=== PATIENT | female | born 1950 | race Two or more races ===

== ENCOUNTER 2019-12-16 09:11 | Outpatient (CLI) | payer MEDICARE, MEDICAID ==
[~2019-12-16] VITALS: Ht 144.8 cm; Wt 49.0 kg
--- NOTE | 2019-12-16 11:15 | Consultation ---
DATE OF CONSULTATION: 12/16/2019 CONSULTING PHYSICIAN: Torsten Shannon MD. CHIEF COMPLAINT: Abdominal pain, chronic GERD. PAST MEDICAL HISTORY: 1. Hypercholesterolemia. 2. Kidney stone. PAST SURGICAL HISTORY: Laser kidney surgery for stone. MEDICATIONS: Include hypercholesterolemia medication. FAMILY HISTORY: No family history of GI malignancy. SOCIAL HISTORY: The patient denies any tobacco, alcohol, or drug abuse. ALLERGIES: No known drug allergies. REVIEW OF SYSTEMS: Positive for abdominal pain, constipation and bloating. PHYSICAL EXAMINATION: VITAL SIGNS: Temperature 98.6, blood pressure 147/75, pulse , respirations 20. HEENT: Normocephalic, atraumatic. Sclerae anicteric. NECK: Supple. No evidence of obvious lymphadenopathy. CARDIOVASCULAR: Regular rate and rhythm. Plus S1 and S2. LUNGS: Clear to auscultation bilaterally. ABDOMEN: Positive bowel sounds. Soft and nontender. No rebound. No guarding. No peritoneal sign. EXTREMITIES: No cyanosis, no clubbing, no edema. ASSESSMENT/PLAN: This is a 69-year-old female with need for screening colonoscopy, also complained of chronic GERD, needs endoscopy. Plan to do an endoscopy and colonoscopy. The patient also was given one tablet p.o. daily for her symptoms of bloating. Consider adding Xifaxan if no improvement. I want to thank Dr. Renae for this kind referral. Torsten Shannon M.D. DR: LAURY JOB#: [id number] CC: Tortsen Renae MD.; Fax#: [phone]
[2019-12-16 14:09] VITALS: BP 147/75
[2019-12-16] MEDS ORDERED: CHOLESTEROL MED (14:09)
== END 2019-12-16 11:11 | disposition home or self-care (01) ==
LOC: PAN 09:11
DX: R10.9 Unspecified abdominal pain (principal); K21.9 Gastro-esophageal reflux disease without esophagitis; E78.00 Pure hypercholesterolemia, unspecified; Z87.442 Personal history of urinary calculi; Z79.899 Other long term (current) drug therapy; K59.00 Constipation, unspecified; R14.0 Abdominal distension (gaseous)

== ENCOUNTER 2019-12-31 09:13 | Day surgery (SDC) | payer MEDICARE, MEDICAID ==
[~2019-12-31] VITALS: Ht 152.4 cm; Wt 45.4 kg
[2019-12-31] VITALS (8 sets, daily range): BP systolic 129–163; BP diastolic 74–87
[~2019-12-31 09:13] MED LIST: CHOLESTEROL MED
--- NOTE | 2019-12-31 10:20 | Pre-Procedure Note/Attestation ---
Pre-Procedure Note/Attestation Complete Prior to Procedure Planned Procedure: not applicable Procedure Narrative: EGD AND COLONOSCOPY Indications for Procedure Pre-Operative Diagnosis: GERD, SCREENING Attestation I attest that I discussed the nature of the procedure; its benefits; risks and complications; and alternatives (and the risks and benefits of such alternatives ), prior to the procedure, with the patient (or the patient's legal players club representative). I attest that, if there was a reasonable possibility of needing a blood transfusion, the patient (or the patient's legal players club representative) was given the [facility] standardized written summary, pursuant to the [place] Blood Safety Act ([place] Health and Safety Code # 1645, as amended). I attest that I re-evaluated the patient just prior to the surgery and that there has been no change in the patient's H&P, except as documented below: Torsten Shannon MD Dec 31, 2019 10:20
--- NOTE | 2019-12-31 10:21 | Short Stay Surgery H&P ---
History of Present Illness History of Present Illness Chief Complaint SEE RECENT OFFICE NOTE HPI Levy Macias is a 69 year old female who was admitted on for Gerd, Colon Screening Patient History Allergies: Coded Allergies: No Known Allergies (Unverified , 01/08/12) Medication History Miscellaneous Medications [Cholesterol Med ], (Reported) Physical Exam Vital Signs Last Vital Signs Date Time Temp Pulse Resp B/P (MAP) Pulse Ox O2 Delivery O2 Flow Rate FiO2 12/31/19 09:54 Room Air 12/31/19 09:46 98.2 82 18 163/80 100 Plan Attestation Are the patient's medical conditions optimized for surgery? Torsten Shannon MD Dec 31, 2019 10:21
--- NOTE | 2019-12-31 10:39 | Endoscopy Procedure Note ---
Endoscopy Procedure Note General Indication for Procedure: screening colon, GERD Procedures Performed: EGD, colonoscopy Operative Findings/Diagnosis: gastritis, hemorrhoids Specimen: yes Pt Tolerated Procedure Well: Yes Estimated Blood Loss: none Anesthesia Anesthesiologist: dwayne Anesthesia: MAC Inserted Devices Implant(s) used?: No Quality Quality of Bowel Preparation: Good Did scope reach the cecum?: Yes Was there any complications?: No GI Core Measures 50 yrs or older w/o bx or poly: No 10yrs. F/U recommended: Yes If not recommended, why?: Above average risk 18 years or older w/prev. colo: No Torsten Shannon MD Dec 31, 2019 10:39
--- NOTE | 2019-12-31 11:11 | Immediate Post-Op Evaluation ---
Immediate Post-Op Evalulation Immediate Post-Op Evalulation Procedure: egd/colonoscopy Date of Evaluation: Dec 31, 2019 Time of Evaluation: 11:10 IV Fluids: 600 Blood Pressure Systolic: 135 Blood Pressure Diastolic: 85 Pulse Rate: 64 Respiratory Rate: 14 O2 Sat by Pulse Oximetry: 100 Temperature (Fahrenheit): 98.4 Nausea: No Vomiting: No Complications none Patient Status: awake, reacts, patent Hydration Status: adequate Drug: Carli An CRNA Dec 31, 2019 11:11
--- NOTE | 2019-12-31 11:12 | Anethesia Preoperative Eval ---
Anesthesia Pre-op PMH/ROS General Date of Evaluation: Dec 31, 2019 Time of Evaluation: 10:30 Anesthesiologist: sherice ASA Score: ASA 2 Mallampati Score Class I : Soft palate, uvula, fauces, pillars visible Class II: Soft palate, uvula, fauces visible Class III: Soft palate, base of uvula visible Class IV: Only hard plate visible Mallampati Classification: Class II Surgeon: nba Diagnosis: GERD Surgical Procedure: EGD/Colonoscopy Anesthesia History: none Family History: no anesthesia problems Allergies: Coded Allergies: No Known Allergies (Unverified , 01/08/12) Medications: see eMAR Patient NPO?: Yes NPO Date: Dec 31, 2019 NPO Time: 00:01 Past Medical History Cardiovascular: Denies: HTN, CAD, [place], valve dz, arrhythmia, other Pulmonary: Denies: asthma, COPD, RADHA, other Gastrointestinal/Genitourinary: Reports: GERD; Denies: CRI, ESRD, other Neurologic/Psychiatric: Denies: dementia, CVA, depression/anxiety, TIA, other Endocrine: Denies: DM, hypothyroidism, steroids, other HEENT: Denies: cataract (L), cataract (R), glaucoma, [place] (L), [place] (R), other Hematology/Immune: Denies: anemia, DVT, bleeding disorder, other Musculoskeletal/Integumentary: Denies: OA, RA, DJD, DDD, edema, other Anesthesia Pre-op Phys. Exam Physician Exam Last Vital Signs Date Time Temp Pulse Resp B/P (MAP) Pulse Ox O2 Delivery O2 Flow Rate FiO2 12/31/19 09:54 Room Air 12/31/19 09:46 98.2 82 18 163/80 100 Constitutional: NAD Neurologic: CN 2-12 intact Cardiovascular: RRR Respiratory: CTA Gastrointestinal: S/NT/ND Airway Exam Mallampati Classification 2 Mallampati Score: Class II MO: full ROM: full Dentures: no upper, no lower Anesthesia Pre-op A/P Studies Pre-op Studies: EKG - SR Risk Assessment & Plan Assessment: covid neg Plan: mac Status Change Before Surgery: No Pre-Antibiotics Drug: Carli An CRNA Dec 31, 2019 11:12
--- NOTE | 2019-12-31 15:11 | 48 Hour Post Anesthesia Eval ---
Post Anesthesia Evaluation Procedure: egd/colonoscopy Date of Evaluation: Dec 31, 2019 Time of Evaluation: 15:11 Blood Pressure Systolic: 139 0: 74 Pulse Rate: 65 Respiratory Rate: 14 O2 Sat by Pulse Oximetry: 98 Airway: patent Nausea: No Vomiting: No Hydration Status: adequate Cardiopulmonary Status: stable Mental Status/LOC: patient returned to baseline Post-Anesthesia Complications: none Follow-up care needed: N/A Carli Henriquez CRNA Dec 31, 2019 15:11
--- NOTE | 2019-12-31 16:00 | Procedure Note ---
DATE OF PROCEDURE: 12/31/2019 ENDOSCOPIST: Chantell Méndez M.D. ANESTHESIOLOGIST: Carli Lubin CRNA. PROCEDURE PERFORMED: Upper endoscopy with biopsy and colonoscopy with biopsy. INSTRUMENT USED: Olympus adult flexible endoscope and colonoscope. INDICATIONS FOR PROCEDURE: Screening colonoscopy evaluation and chronic GERD. The procedure, risks, benefits, and possible consequences, including hemorrhage, aspiration, perforation and infection, and alternative treatments, were explained to the patient/legal guardian by Dr. Torsten Shannon and the patient/legal guardian understood and accepted these risks. DESCRIPTION OF PROCEDURE: After informed consent was obtained and the patient was adequately sedated, the Olympus upper endoscope was advanced through the mouth into the second portion of the duodenum and retroflexion maneuver was performed in the stomach. The patient had diffuse gastritis. Random biopsies from antrum and body were obtained to rule out H. pylori infection. At this time, the upper endoscope was retrieved. The patient was turned over for colonoscopy. First, rectal exam was performed, which was positive for internal hemorrhoids, and then the scope was advanced into the rectum to the cecum identified by the appendiceal orifice, ileocecal valve, and right upper quadrant palpation. Quality of prep was good. The patient had 1 diminutive polyp in the transverse colon, which was removed with cold biopsy forceps technique. Otherwise, the rest of the examination grossly looked within normal limits. Retroflexion in the rectum showed evidence of large internal hemorrhoids. SUMMARY OF FINDINGS: 1. Gastritis, status post biopsy. 2. Internal hemorrhoids. 3. One colonic polyp, removed. See above for details. RECOMMENDATIONS: 1. Follow path. 2. Treat for hemorrhoids if it becomes symptomatic. 3. Repeat colonoscopy in 5 years. I want to thank Dr. Torsten Renae for this kind referral. Torsten Shannon M.D. DR: ROGER JOB#: [id number] CC: Torsten Renae M.D.; Fax#: [phone]
== END 2019-12-31 12:05 | disposition home or self-care (01) ==
LOC: GAS 09:13
DX: Z12.11 Encounter for screening for malignant neoplasm of colon (principal); K63.5 Polyp of colon; K64.8 Other hemorrhoids; K21.9 Gastro-esophageal reflux disease without esophagitis; K29.50 Unspecified chronic gastritis without bleeding
CPT/HCPCS: 43239; 45380; 93005; 94003; U0002; 94150

== ENCOUNTER 2020-01-14 14:09 | Outpatient (CLI) | payer MEDICARE, MEDICAID ==
[2020-01-14 14:20] VITALS: BP 129/65
--- NOTE | 2020-01-14 14:46 | General Progress Note ---
Assessment/Plan Assessment/Plan: SUMMARY OF FINDINGS: 1. Gastritis, status post biopsy. 2. Internal hemorrhoids. 3. One colonic polyp, removed. See above for details. RECOMMENDATIONS: 1. Follow path.>>> neg for HP 2. Treat for hemorrhoids if it becomes symptomatic. 3. Repeat colonoscopy in 5 years. 4. align Subjective ROS Limited/Unobtainable: Yes Allergies: Coded Allergies: No Known Allergies (Unverified , 01/08/12) Objective Last 24 Hour Vital Signs Date Time Temp Pulse Resp B/P (MAP) Pulse Ox O2 Delivery O2 Flow Rate FiO2 01/14/20 14:20 98.5 57 16 129/65 (86) 97 General Appearance: alert EENT: normal ENT inspection Neck: supple Cardiovascular: normal rate Respiratory/Chest: lungs clear Abdomen: normal bowel sounds, non tender, soft Extremities: non-tender Torsten Shannon MD Jan 14, 2020 14:46
== END 2020-01-14 16:09 | disposition home or self-care (01) ==
LOC: PAN 14:09
DX: K29.70 Gastritis, unspecified, without bleeding (principal); K64.8 Other hemorrhoids; K63.5 Polyp of colon
CPT/HCPCS: 99212